=== PATIENT | male | born 1965 | race Caucasian/White ===

== ENCOUNTER 2018-05-25 14:16 | Outpatient (CLI) | payer BC, SELFPAY ==
[2018-05-25 15:12] LABS: Hemoglobin A1C 6.7 % (4.5-6.2)
[2018-05-25 16:24] LABS: Anion Gap 12.9 mmol/L (3-11); BUN 21 mg/dL (7-18); CO2 24.1 mmol/L (21.0-32.0); CREATININE 1.12 mg/dL (0.70-1.30); Chloride 101 mmol/L (98-107); Glucose 111 mg/dL (70-100); Potassium 4.3 mmol/L (3.5-5.1); Sodium 138 mmol/L (136-145)
[2018-05-25 16:36] LABS: Cholesterol 189 mg/dL (50-200); HDL Cholesterol 38 mg/dL (40-60); LDL CHOLESTEROL 117 mg/dL (<100); Triglyceride 252 mg/dL (30-150)
== END 2018-05-25 14:36 ==
PROVIDERS: PCP Emergency Medicine; Visit Provider Emergency Medicine
DX: E11.9 Type 2 diabetes mellitus without complications (principal); I10 Essential (primary) hypertension
CPT/HCPCS: 36415; 80048; 80061; 83721; 83036

== ENCOUNTER 2018-11-26 07:13 | Day surgery (SDC) | payer BC, SELFPAY ==
--- NOTE | 2018-11-26 06:50 | W.COLOREPORT ---
Date of service: 11/26/18 Time of Service: 08: Colonoscopy Report Date of procedure: 11/26/18 Pre-op diagnosis general: Colon Cancer Screening Post-op diagnosis procedure note: other (Diverticulosis and polyps) Procedure: Colonoscopy with polypectomy Surgeon: Humaira Fowler Anesthesia proc note operative: other (General/ ASA 2/Lara Brown CRNA) Estimated blood loss (mL): 3 Pathology: other (descending, sigmoid polyps and rectal polyp) Complications: None Disposition: same day Indications: Mr. James is a pleasant 53 year old male seen in the office for his 1st colonoscopy. Risks, benefits and complications have been reviewed. Complications include but are not limited to bleeding, pain, perforation, missed small lesion/polyp, sore throat, aspiration and adverse reaction to the medications. Questions were entertained and answered to their satisfaction and they wished to proceed. No guarantees were given or implied. Prep: Miralax/Dulcolax Procedure Start Time: 08:22 Procedure End Time: 08:53 Retraction Time: 22 minutes Findings: Moderate diverticulosis of the left colon 5 polyps Procedure Description: After informed consent was obtained the patient was taken to the procedure room and placed in a left decubitous position. Monitors were applied and a time out was done. The patients name, date of , procedure, allergies to medications and metal in their body was reviewed. The patient was then sedated. Once sedated and comfortable a rectal exam was done. External exam was normal. Internal exam revealed a normal sphincter tone and no palpable masses. The prostate felt smooth. The scope was then introduced and retro-flexed. No internal hemorrhoids and masses were identified. The scope was then advanced to the cecum without difficulty. The TI and appendiceal orifice were identified. The prep was adequate. The scope was then slowly retracted over 22 minutes back into the rectum. Polyps were removed with cold forceps in the descending colon x1, sigmoid colon x2 and rectum x2. There was moderate diverticulosis noted of the descending and sigmoid colon. The scope was removed and the patient was woken up and taken back to Same day surgery in stable condition. The patient tolerated the procedure well and there were no immediate complications. Follow up: The patient should follow up in 3-5 years unless they develop changes in bowel habits or other new gastrointestinal complaints.
--- NOTE | 2018-11-26 06:52 | W.PM.DSUDISC ---
Discharge Plan Disposition Patient Disposition: HOME Condition: Good Discharge Details Reason For Visit: Colon Cancer Screening Attending Provider: Humaira Fowler Primary Care Provider: Hamilton Mayen Home Meds and New Rx's Prescriptions: Continued (DME) lancets [OneTouch UltraSoft Lancets] misc See Dose Instructions .ROUTE .MEDSUPPLY Qty: 50 RF: 0 (DME) blood-glucose meter [OneTouch Ultra2 Meter] kit See Dose Instructions .ROUTE .MEDSUPPLY Qty: 1 RF: 0 amlodipine 5 mg tablet 5 mg PO DAILY Qty: 90 RF: 4 (DME) lancets [OneTouch Delica Lancets] 1 EACH misc 1 ea Miscellaneous DAILY Qty: 100 RF: 4 (DME) Blood Glucose Test 1 EACH strip 1 ea Miscellaneous DAILY Qty: 100 RF: 4 (DME) OneTouch Ultra Blue Test Strip strip See Dose Instructions .ROUTE .MEDSUPPLY Qty: 100 RF: 3 metformin 1,000 mg tablet 1,000 mg PO BID Qty: 180 RF: 3 pravastatin 40 mg tablet 40 mg PO DAILY Qty: 90 RF: 3 lisinopril 10 mg tablet 20 mg PO DAILY Qty: 90 RF: 3 Discontinued polyethylene glycol 3350 17 gram/dose powder 238 g PO ONCE Qty: 238 RF: 0 bisacodyl [Dulcolax (bisacodyl)] 5 mg tablet,delayed release (DR/EC) 5 mg PO ONCE Qty: 4 RF: 0 Discharge Instructions Instructions: Diverticulosis (DC), Colorectal Polyps (DC) Additional Instructions: Findings: diverticulosis 5 polyps Follow up: 3-5 years Please call if you develop: fevers >101.5 Nausea or Vomiting Abdominal pain that is not transient DAY SURGERY UNIT POST ENDOSCOPY INSTRUCTIONS 1. Because there will be medication in your system for the next 24 hours, you may feel a little sleepy. Your coordination will be affected. Therefore: a. Do not drive or operate dangerous equipment for 24 hours. b. Do not drink alcohol beverages for 24 hours (not even beer). c. Plan to go home and rest for the day. 2. Generally there are no restrictions on your activity after a day or so has gone by, but you may feel a bit fatigued for a few days. 3 After you arrive home you may have a light meal and return to a normal diet as you can tolerate it without feeling sick to your stomach. 4. After surgery, you may feel pain or discomfort. This should be only transient, but if it persists please contact your doctor. 5. If there are any questions regarding the findings of your procedure, please feel free to contact your doctor. 6. If you are unable to contact your doctor with a problem, contact the hospital at [phone]. 7. Continue all your regular medications unless directed otherwise. I understand the above instructions and have no questions. Signature of Patient or Responsible Adult Escort Date/Time Name of Responsible Adult Escort Signature of Nurse Date/Time Activity:: Activity as Tolerated Diet:: High Fiber Diet Discharge Orders Discharge Orders: Discharge Order (Routine); Ordered 11/26/18 Ordered By: Humaira Fowler DS: Diagnosis Discharge Diagnosis (1) S/P colonoscopy: Status: Acute (2) Diverticulosis: Status: Acute (3) Colorectal polyps: Status: Acute
[2018-11-26 07:20] VITALS: BP 137/97; PULSE 91; RESP 18; TEMP 36; O2SAT 97
[2018-11-26] MEDS: Lactated Ringers 1,000 ML 80 ML IV (07:52)
--- NOTE | 2018-11-26 08:47 | BOWEL_PTH ---
PATIENT: Pranav James LOC: [facility] U#:[id number] AGE/SX: 53/M ROOM: RE11/26/[address]: Humaira Fowler MD : 1965 BED: DIS: 11/26/2018 SPEC #: [id number] RECD: 11/26/18 12:45 STATUS: ASHWINI REQ #: [id number] KHADIJAH: 11/26/18 08:[address]: Humaira Fowler DEPT: Surgical Specimen RECD BY: Kaley Lyman ENTERED: 11/26/18 12:46 SP TYPE: Bowel OTHR DR: Hamilton Mayen DO Tissues: 1 - BIOPSY BOWEL 2 - BIOPSY BOWEL 3 - BIOPSY BOWEL Procedures: GROSS AND MICRO LEVEL 4 Comments: [id number]
[2018-11-26 09:30] VITALS: BP 111/76; PULSE 68; RESP 18; TEMP 36.4; O2SAT 97
--- NOTE | 2018-11-30 10:15 | ROE_ITS ---
NOVEMBER 30, 2018 THIS IS ATEST TO SEE IF THE CHANNEL MARKETING SPECIALIST WILL CROSS [facility] EMERGENCY ROOM ON THE REPORT - AFTER GINA MADE A CHANGE.
== END 2018-11-26 09:50 | disposition home or self-care (01) ==
LOC: SUR 07:13
PROVIDERS: PCP Emergency Medicine; Visit Provider Surgery
PROC: 0DJD8ZZ Inspection of Lower Intestinal Tract, Via Natural or Artificial Opening Endoscopic (ICD-10-PCS; CPT 45378; principal; 2018-11-26 08:30)
DX: Z12.11 Encounter for screening for malignant neoplasm of colon (principal); K63.5 Polyp of colon; K57.30 Diverticulosis of large intestine without perforation or abscess without bleeding; E11.9 Type 2 diabetes mellitus without complications; Z79.84 Long term (current) use of oral hypoglycemic drugs; I10 Essential (primary) hypertension
CPT/HCPCS: 45380; 88305

== ENCOUNTER 2019-03-12 07:46 | Outpatient (CLI) | payer BC, SELFPAY ==
[2019-03-12 12:48] LABS: Anion Gap 10.2 mmol/L (3-11); BUN 17 mg/dL (7-18); CO2 27.8 mmol/L (21.0-32.0); CREATININE 1.05 mg/dL (0.70-1.30); Calcium 8.7 mg/dL (8.5-10.1); Chloride 101 mmol/L (98-107); Glucose 225 mg/dL (74-106); Potassium 4.4 mmol/L (3.5-5.1); Sodium 139 mmol/L (136-145)
[2019-03-12 13:11] LABS: Hemoglobin A1C 7.4 % (3.8-5.6)
== END 2019-03-12 08:06 ==
PROVIDERS: PCP Emergency Medicine; Visit Provider Emergency Medicine
DX: I10 Essential (primary) hypertension (principal); E11.9 Type 2 diabetes mellitus without complications; Z12.5 Encounter for screening for malignant neoplasm of prostate
CPT/HCPCS: 36415; 80048; 84153; 83036

== ENCOUNTER 2019-10-07 02:36 | Outpatient (CLI) | payer BC, SELFPAY ==
[2019-10-07 08:46] LABS: Hemoglobin A1C 7.2 % (3.8-5.6)
[2019-10-07 08:50] LABS: BUN 20 mg/dL (7-18); CREATININE 1.02 mg/dL (0.70-1.30); Calcium 8.7 mg/dL (8.5-10.1); Chloride 104 mmol/L (98-107); Glucose 155 mg/dL (74-106); Potassium 4.5 mmol/L (3.5-5.1); Sodium 139 mmol/L (136-145)
== END 2019-10-07 02:56 ==
PROVIDERS: PCP Emergency Medicine; Visit Provider Emergency Medicine
DX: E11.9 Type 2 diabetes mellitus without complications (principal); I10 Essential (primary) hypertension
CPT/HCPCS: 36415; 80048; 83036

== ENCOUNTER 2019-12-31 12:31 | Outpatient (CLI) | payer BC, SELFPAY ==
--- NOTE | 2019-12-31 15:00 | DI.RAD_ITS ---
EXAM: XR CHEST 2V PA LATERAL CLINICAL HISTORY: cough, R05 TECHNIQUE: 2D digital imaging was performed. COMPARISON: No exams were available for comparison FINDINGS: MEDIASTINUM: Normal. HEART: Normal. PULMONARY VASCULATURE: Normal. LUNGS: Clear. PLEURAL SPACE: No pleural effusion or pneumothorax. BONE:Within normal limits for the patient's age. OTHER FINDINGS:Normal. IMPRESSION: No acute pulmonary findings. DATA REPOSITORY: RADIATION DOSE DELIVERED:
== END 2019-12-31 12:51 ==
PROVIDERS: PCP Emergency Medicine; Visit Provider Emergency Medicine
DX: R05 Cough (principal)
CPT/HCPCS: 71046

== ENCOUNTER 2021-03-26 01:43 | Outpatient (CLI) | payer OTHER, SELFPAY ==
--- NOTE | 2021-03-26 12:49 | DI.RAD_ITS ---
Exam(s) XR LUMBAR SPINE COMPLETE EXAM: XR LUMBAR SPINE COMPLETE CLINICAL HISTORY: low back pain,m54.50. TECHNIQUE: 2D digital imaging was performed of the lumbar spine. Six images were obtained. AP, lat eral, right oblique, left oblique and L5-S1 spot views were obtained. COMPARISON: No exams were available for comparison FINDINGS: BONES: No fracture or destructive lesion. Endplate osteophytes are present at all levels of the lumba r spine. Degenerative changes of the facets are seen in the lower lumbar spine. There is a rudiment gemini rib on the 1st lumbar vertebra. DISKS: There is disc space narrowing at L3-L4 and L5-S1. ALIGNMENT: Lumbar spinal alignment is within normal limits. No spondylolysis or spondylolisthesis. SOFT TISSUE: There are surgical clips in the right upper quadrant of the abdomen. IMPRESSION: Ytiu-ja-ztymhavf degenerative changes in the lumbar spine. DATA REPOSITORY: RADIATION DOSE DELIVERED:
== END 2021-03-26 02:03 ==
PROVIDERS: PCP Family Medicine; Visit Provider Emergency Medicine
DX: M54.50 Low back pain, unspecified (principal); M51.36 Other intervertebral disc degeneration, lumbar region
CPT/HCPCS: 72110

== ENCOUNTER 2021-04-26 03:10 | Outpatient (CLI) | payer OTHER, SELFPAY ==
[2021-04-26 08:43] LABS: Anion Gap 9.6 mmol/L (3-11); BUN 20 mg/dL (7-18); CO2 26.4 mmol/L (21.0-32.0); Calcium 9.1 mg/dL (8.5-10.1); Calculated LDL 94 mg/dL (<100); Chloride 98 mmol/L (98-107); Cholesterol 186 mg/dL (<200); Glucose 314 mg/dL (74-106); HDL Cholesterol 41 mg/dL (40-60); Potassium 4.1 mmol/L (3.5-5.1); Sodium 134 mmol/L (136-145); Triglyceride 259 mg/dL (<150)
[2021-04-26 08:50] LABS: Hemoglobin A1C 10.1 % (<5.7)
[2021-04-26 09:49] LABS: COMMENT (LAB VIEW ONLY) 79.67 mg/dL; Microalb ug/mg Crea 48.1 ug/mg Cr
== END 2021-04-26 03:11 | disposition home or self-care (01) ==
LOC: LBO 03:10
PROVIDERS: PCP Family Medicine; Visit Provider Family Medicine
DX: E11.65 Type 2 diabetes mellitus with hyperglycemia (principal); I10 Essential (primary) hypertension
CPT/HCPCS: 36415; 80048; 80061; 82043; 82570; 83036

== ENCOUNTER 2022-04-18 02:52 | Outpatient (CLI) | payer OTHER, SELFPAY ==
[2022-04-18 14:09] LABS: Potassium 4.2 mmol/L (3.5-5.1)
== END 2022-04-18 02:53 | disposition home or self-care (01) ==
PROVIDERS: PCP Nurse Practitioner Family; Visit Provider Nurse Practitioner Family
DX: I10 Essential (primary) hypertension (principal)
CPT/HCPCS: 36415; 82565; 84132

== ENCOUNTER 2022-04-29 14:45 | Outpatient (REF) | payer OTHER, SELFPAY ==
--- NOTE | 2022-04-29 14:10 | SKI_PTH ---
PATIENT: Pranav James LOC: [facility] U#:[id number] AGE/SX: 57/M ROOM: RE04/29/[address]: CHANTELLE Vasquez : 1965 BED: DIS: 04/29/2022 SPEC #: [id number] RECD: 04/29/22 18:29 STATUS: ASHWINI REIsac #: [id number] KHADIJAH: 04/29/22 14:[address]: García Concepcion DEPT: Surgical Specimen RECD BY: Kaley Lyman ENTERED: 04/29/22 18:30 SP TYPE: EBENEZER WERNER DR: Robin Almeida, JOB TRAINER Tissues: 1 - SKIN BIOPSY(SHAVE/PUNCH) 2 - SKIN BIOPSY(SHAVE/PUNCH) 3 - SKIN BIOPSY(SHAVE/PUNCH) 4 - SKIN BIOPSY(SHAVE/PUNCH) Procedures: SKIN LEVEL 4 Comments: [id number]
== END 2022-04-29 14:46 | disposition home or self-care (01) ==
LOC: LBN 14:45
PROVIDERS: PCP Nurse Practitioner Family; Visit Provider Physician Assistant
DX: D22.5 Melanocytic nevi of trunk (principal); C44.311 Basal cell carcinoma of skin of nose
CPT/HCPCS: 88305

== ENCOUNTER 2022-06-09 12:07 | Emergency (ER) | payer OTHER, SELFPAY ==
[2022-06-09 12:08] VITALS: BP 166/103; PULSE 84; RESP 16; TEMP 37.1; O2SAT 97
--- NOTE | 2022-06-09 14:00 | NUR.NOTE ---
Nursing Note: Patient stated to Samantha Johnston that he did not want to wait and that he was going to go to [place] [id number].
== END 2022-06-09 14:00 | disposition left against medical advice (07) ==
LOC: ER 12:36
PROVIDERS: PCP Nurse Practitioner Family
DX: Z53.21 Procedure and treatment not carried out due to patient leaving prior to being seen by health care provider (principal)

== ENCOUNTER 2022-12-27 12:09 | Observation (INO) | payer OTHER, SELFPAY ==
[2022-12-27] VITALS (16 sets, daily range): BP systolic 151–201; BP diastolic 87–136; PULSE 66–85; RESP 14–20; TEMP 36.3–37.1; O2SAT 95–99
--- NOTE | 2022-12-27 12:30 | DI.RAD_ITS ---
Exam(s) XR PORTABLE CHEST AP EXAM: XR PORTABLE CHEST AP CLINICAL HISTORY: central chest heaviness TECHNIQUE: 2D digital imaging was performed of the chest. One image was obtained. An AP view was ob tained. COMPARISON: No exams were available for comparison FINDINGS: MEDIASTINUM: Normal. HEART: Normal. PULMONARY VASCULATURE: Normal. LUNGS: Clear. PLEURAL SPACE: No pleural effusion or pneumothorax. BONE:Within normal limits for the patient's age. OTHER FINDINGS:Normal. IMPRESSION: No acute pulmonary findings. DATA REPOSITORY: RADIATION DOSE DELIVERED:
--- NOTE | 2022-12-27 12:30 | RT.EKG_ITS ---
APPROVED REPORT Exam: Resting ECG Reason for Exam: chest pain Patient Location: E HR:84 bpm ECG Measurements Heart Rate 84 AXIS NM 194 P 25 QRSd 107 QRS 8 QT 390 T 4 QTc 461 Conclusion Sinus rhythm...normal P axis, V-rate 60- 99 Probable left ventricular hypertrophy...(RaVL+SV3)xQRSd >280 Physician: no stemi
[2022-12-27] MEDS: Aspirin 81 MG CHEW 324 MG CH (13:17)
[2022-12-27] MEDS: Normal Saline 500 ML IV (13:18)
[2022-12-27 13:30] LABS: Abs Immature Grans 0.02 10^3/uL (0.0-0.06); Absolute Basophil Count 0.04 10^3/uL (0.0-0.2); Absolute Eosinophil Count 0.08 10^3/uL (0.0-0.7); Absolute Lymphocyte Count 2.41 10^3/uL (1.2-3.4); Absolute Monocyte Count 0.78 10^3/uL (0.1-0.8); Absolute Neutrophil Count 6.21 10^3/uL (1.2-6.7); Basophils % 0.4; Eosinophils % 0.8; HCT 44.8 % (40.0-50.0); HGB 15.7 g/dL (13.5-17.5); Immature Grans % 0.2; Lymphocytes % 25.3; MCH 31.1 pg (27.0-33.0); MCV 89 fL (80-95); MPV 9.6 fL (8.0-11.0); Monocytes % 8.2; Neutrophils % 65.1; Platelet Count 273 10^3/uL (130-400); RBC 5.05 10^6/uL (4.36-5.78); RDW 12.4 % (11.8-14.1); RDW-SD 40.9 fL; WBC 9.54 10^3/uL (4.4-10.8)
[2022-12-27 13:45] LABS: ALT 26 U/L (16-63); AST 15 U/L (15-37); Albumin 4.4 g/dL (3.4-5.0); Alkaline Phosphatase 53 U/L (46-116); Anion Gap 8.8 mmol/L (3-11); BUN 17 mg/dL (7-18); Bilirubin, Total 2.4 mg/dL (0.2-1.0); CO2 28.2 mmol/L (21.0-32.0); CREATININE 1.1 mg/dL (0.70-1.30); Calcium 9.7 mg/dL (8.5-10.1); Chloride 101 mmol/L (98-107); Estimated GFR 77.33 (mL/min/1.73m2); Glucose 126 mg/dL (74-106); Lipase 36 U/L (16-77); Potassium 4.1 mmol/L (3.5-5.1); Sodium 138 mmol/L (136-145); Troponin I < 50 ng/L (<or=60)
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
[2022-12-27 13:56] LABS: Bilirubin Negative (Negative); Blood Negative (Negative); Clarity Clear (Clear); Glucose Negative (Negative); Ketones Negative (Negative); Leukocyte Esterase Negative (Negative); Nitrite Negative (Negative); Urobilinogen 0.2 mg/dL (Up to 0.2); pH 5.5 (5-8)
[2022-12-27 13:59] LABS: PTT Activated 25.9 sec (23.6-32.8); Prothrombin Time 10.4 sec (9.1-11.1)
[2022-12-27] MEDS: nitroGLYcerin 0.4 MG TAB SL (14:08)
--- NOTE | 2022-12-27 15:00 | RT.EKG_ITS ---
APPROVED REPORT Exam: Resting ECG Reason for Exam: chest pain Patient Location: E HR:71 bpm ECG Measurements Heart Rate 71 AXIS ND 165 P -4 QRSd 110 QRS -14 QT 401 T -8 QTc 436 Conclusion Sinus rhythm...normal P axis, V-rate 60- 99 Inferior infarct, age indeterminate...Q>35mS, T neg, II III aVF Physician: no stemi, stable inverted t wave in III
[2022-12-27 15:32] LABS: Troponin I < 50 ng/L (<or=60)
[2022-12-27 16:25] LABS: Source Nasal/Nares
[2022-12-27 16:59] LABS: COVID-19 PCR Negative (Negative)
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
[2022-12-27] MEDS: metFORMIN C.R. 500 MG TABCR 1000 MG PO (18:17)
[2022-12-27] MEDS: Pantoprazole 40 MG VIAL IVP (18:47)
[2022-12-27 19:57] LABS: Troponin I < 50 ng/L (<or=60)
[2022-12-27] MEDS: Magic Mouthwash 119 ML BTL 10 ML PO (21:00)
[2022-12-27] MEDS: Mylanta Suspension 30 ML CUP PO (23:50)
[2022-12-27] MEDS: Zolpidem 5 MG TAB 10 MG PO (23:50)
[2022-12-28 03:00] VITALS: BP 142/84; PULSE 74; RESP 15; TEMP 36.4; O2SAT 97
[2022-12-28 07:05] VITALS: BP 174/103; PULSE 75; RESP 22; TEMP 36.6; O2SAT 95
[2022-12-28] MEDS: Lisinopril 20 MG TAB 40 MG PO (08:05)
[2022-12-28] MEDS: Aspirin 81 MG CHEW PO (08:05)
[2022-12-28] MEDS: metFORMIN C.R. 500 MG TABCR 1000 MG PO (08:05)
[2022-12-28] MEDS: amLODIPine 5 MG TAB PO (08:05)
[2022-12-28 08:24] VITALS: BP 159/88
[2022-12-28 09:39] VITALS: BP 169/99
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
[2022-12-28] MEDS: cloNIDine 0.1 MG TAB PO (11:09)
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
--- NOTE | 2022-12-28 16:11 | PDOC.CMPRO ---
Date of service: 12/28/22 Time of Service: 16:11 Care Management Progress Note Progress Note Text Progress Note Text: Pranav was admitted on 12/27/22 with chest pain. Serial troponins were negative and his EKG was unremarkable. he was discharged home before CM was able to meet with him. He will have outpatient follow up to include an MPI stress test.
== END 2022-12-28 14:07 | disposition home or self-care (01) ==
LOC: ER 16:10 → MS 17:10
PROVIDERS: Admitting Provider Family Medicine; Emergency Provider Student in an Organized Health Care Education/Training Program; PCP Nurse Practitioner Family; Visit Provider Family Medicine
DX: R07.9 Chest pain, unspecified (principal); I10 Essential (primary) hypertension; E78.5 Hyperlipidemia, unspecified; E66.9 Obesity, unspecified; R06.09 Other forms of dyspnea; Z82.49 Family history of ischemic heart disease and other diseases of the circulatory system; Z79.84 Long term (current) use of oral hypoglycemic drugs; E11.65 Type 2 diabetes mellitus with hyperglycemia; Z68.36 Body mass index [BMI] 36.0-36.9, adult
CPT/HCPCS: 00123; 80053; 83690; 87635; 93005; 93308; 71045; 81003; 84484; 85025; 85610; 85730; 93010; 93306; 99223; 99239; G0378

== ENCOUNTER → 2023-01-16 02:03 | Outpatient (CLI) | payer OTHER, SELFPAY ==
--- NOTE | 2023-01-16 06:25 | ETT_ITS ---
APPROVED REPORT Exam: Exercise Treadmill Patient Location: Out-Patient Room/Bed: Stress Nurse: Darien Bosch RN Ordering Provider:MADAY GRISSOM, Contact Number: [phone] BMI: 34.72 Baseline Rhythm: Sinus Rhythm Indications: Chest pain, SOB Medical History Medical History: HTN, DM, HLD, obesity Cardiac Medications: Amlodipine, Lisinopril., Allergies: No known drug allergies Cardiac Risk Factors: HTN, Hyperlipidemia, DM, Obesity Pretest Chest Pain Characteristics: No chest pain Exercise History: Sedentary Physical Disabilities: None Lung Sounds: Clear to auscultation Heart Sounds: Regular Stress Test Details Test: Exercise stress testing was performed using a Maximino protocol. Rest Stress HR Resting HR Supine: 79 bpm Max Heart Rate (APMHR): 161 bpm Resting HR Standin bpm Target HR (85% APMHR): 137 bpm Max HR Achieved: 152 bpm % of APMHR: 94 Recovery HR: 97 bpm HR response to stress: Normal HR response to stress BP Resting BP Supine: 158/98 mmHg Resting BP Standin/92 mmHg Max BP: 176/78 mmHg Recovery BP: 144/92 mmHg BP response to stress: Normal blood pressure response to stress. ECG Resting ECG: Sinus Rhythm Ectopy: none Stress ECG: Sinus Tachycardia ST Change: No significant ST segment changes noted Arrhythmia: None Comment: One PVC noted. Recovery ECG: Sinus Rhythm Recovery ST Change: No significant ST segment changes noted Recovery Arrhythmia: None Clinical Reason for Termination: Target HR Achieved, Fatigue Stress Symptoms: None Exercise duration: 9 min22 sec Highest Stage Reached: 4 Exercise capacity: 10.73 METs Angina Score: None Bhagat Treadmill Score: 8.3 Rate Pressure Product: [id number] Stress ECG Conclusion 1. Resting electrocardiogram showed right axis, late transition 2. Patient exercised on the Maximino protocol completed a workload of 10.73 METS 3. Normal heart rate and blood pressure response to exercise. The patient achieved 94% of predicted heart rate for age 4. There was no electrocardiographic evidence of myocardial ischemia 5. There were no significant dysrhythmias Bhagat Treadmill Score is 8.3 which is Low risk. Stress Test Summary STAGE Time (mins) Speed (mph) Grade (%) HR BP SpO2 SYMPTOMS METS Supine 79 158/98 96 Standing 79 130/92 1 3 1.7 10 86 130/92 98 4.5 2 6 2.5 12 102 7 1 min recovery 145 176/78 98 3 min recovery 96 162/84 6 min recovery 93 144/92 97
== END ==
PROVIDERS: PCP Nurse Practitioner Family; Visit Provider Nurse Practitioner Family
DX: R07.9 Chest pain, unspecified (principal)
CPT/HCPCS: 93017

== ENCOUNTER 2023-04-10 04:23 | Outpatient (CLI) | payer OTHER, SELFPAY ==
[2023-04-10 14:38] LABS: Abs Immature Grans 0.02 10^3/uL (0.0-0.06); Absolute Basophil Count 0.05 10^3/uL (0.0-0.2); Absolute Eosinophil Count 0.09 10^3/uL (0.0-0.7); Absolute Lymphocyte Count 2.22 10^3/uL (1.2-3.4); Absolute Monocyte Count 1.03 10^3/uL (0.1-0.8); Basophils % 0.5; Eosinophils % 0.9; HCT 41.6 % (40.0-50.0); HGB 14.6 g/dL (13.5-17.5); Immature Grans % 0.2; Lymphocytes % 23.3; MCHC 35.1 % (32.0-36.0); MCV 88 fL (80-95); MPV 9.9 fL (8.0-11.0); Monocytes % 10.8; Neutrophils % 64.3; Platelet Count 270 10^3/uL (130-400); RBC 4.71 10^6/uL (4.36-5.78); RDW 12.3 % (11.8-14.1); RDW-SD 40.2 fL; WBC 9.51 10^3/uL (4.4-10.8)
[2023-04-10 15:24] LABS: CREATININE 1.1 mg/dL (0.70-1.30); Calculated LDL 88 mg/dL (<100); Cholesterol 159 mg/dL (<200); Estimated GFR 76.85 (mL/min/1.73m2); Ferritin 229 ng/mL (26-388); HDL Cholesterol 45 mg/dL (40-60); Potassium 3.9 mmol/L (3.5-5.1); TSH (W/Ref FT4) 1.61 uIU/mL (0.36-3.74); Triglyceride 132 mg/dL (<150)
[2023-04-10 16:01] LABS: Iron 73 ug/dL (65-175); Total Iron Binding Capacity 286 ug/dL (250-450)
[2023-04-11 09:57] LABS: Transferrin 227 mg/dL (201-352)
== END 2023-04-10 04:24 | disposition home or self-care (01) ==
PROVIDERS: PCP Nurse Practitioner Family; Visit Provider Nurse Practitioner Family
DX: I10 Essential (primary) hypertension (principal); E78.5 Hyperlipidemia, unspecified
CPT/HCPCS: 36415; 80061; 82565; 82728; 83540; 83550; 84132; 84443; 84466; 85025

== ENCOUNTER 2023-09-04 06:53 | Day surgery (SDC) | payer OTHER, SELFPAY ==
--- NOTE | 2023-09-03 11:31 | PDOC.DSDIS_ITS ---
Date of service: 09/04/23 Time of Service: 08:30 Discharge Plan Disposition Patient Disposition: Home Condition: Good Discharge Details Reason For Visit: screening colonoscopy Attending Provider: Ezra Varela Primary Care Provider: Robin Almeida Home Meds and New Rx's Prescriptions: Continued (DME) lancets [OneTouch UltraSoft Lancets] misc See Dose Instructions .ROUTE .MEDSUPPLY Qty: 50 0RF Dose Instruction: As directed Rx Instructions: As directed (DME) blood-glucose meter [OneTouch Ultra2 Meter] kit See Dose Instructions .ROUTE .MEDSUPPLY Qty: 1 0RF Dose Instruction: As directed Rx Instructions: As directed fluorouracil [Efudex] 5 % cream 1 applic topical BID semaglutide 7 mg tablet 7 mg PO DAILY Qty: 90 3RF lisinopril 40 mg tablet 40 mg PO DAILY Qty: 90 3RF (DME) lancets [OneTouch Delica Lancets] 1 EACH misc 1 ea Miscellaneous DAILY Qty: 100 Rx Instructions: DX:250.0 (DME) Blood Glucose Test 1 EACH strip 1 ea Miscellaneous DAILY Qty: 100 Rx Instructions: DX:250.0 ONE TOUCH MINI TEST STRIPS (DME) OneTouch Ultra Blue Test Strip strip See Dose Instructions .ROUTE .MEDSUPPLY Qty: 100 3RF Dose Instruction: As directed Rx Instructions: As directed (DME) Blood Glucose Test Strip See Rx Instructions .ROUTE .MEDSUPPLY Qty: 100 5RF Rx Instructions: daily. E11.9 free style lite test strips metformin 500 mg tablet extended release 24 hr 1,000 mg PO BID Qty: 360 3RF pravastatin 40 mg tablet 40 mg PO DAILY Qty: 90 3RF amlodipine 5 mg tablet 10 mg PO HS Qty: 90 3RF zolpidem [Ambien] 10 mg tablet 10 mg PO QHS PRN (Reason: sleep) Qty: 30 2RF chlorthalidone 25 mg tablet 25 mg PO DAILY Qty: 90 3RF omeprazole 20 mg capsule,delayed release(DR/EC) 20 mg PO DAILY Qty: 90 3RF aspirin [Children's Aspirin] 81 mg Tablet,Chewable 81 mg PO DAILY Qty: 0 0RF famotidine 20 mg Tablet 20 mg PO DAILY Qty: 0 0RF Discontinued polyethylene glycol 3350 17 gram/dose powder 17 g PO ONCE Qty: 238 0RF Rx Instructions: Take per colonoscopy instructions provided by ordering providers office bisacodyl [Dulcolax (bisacodyl)] 5 mg tablet,delayed release (DR/EC) 5 mg PO ONCE Qty: 4 0RF Rx Instructions: Take per colonoscopy instructions provided by ordering providers office Discharge Instructions Instructions: Diverticulosis, High-fiber diet Additional Instructions: Pranav, we were able to complete your colonoscopy today without any difficulty. Your prep was excellent and I could see everything fine. You do have diverticulosis. These are small weak spots in the muscular wall of the colon that cause the inside lining to approach outward slightly. This can get infected or inflamed. When that happens, patients usually have quite a bit of pain usually on the left side of their abdomen or down across the lower portion. During episodes of inflammation, we caught diverticulitis. This is often times treated with antibiotics. Generally, the best approach for managing diverticu losis involves having a lots of fiber in your diet to promote soft and regular bowel movements. He should stay well-hydrated and avoid symptoms of constipation. I have attached a little bit of information here about diverticulosis. With a negative screening colonoscopy, you are good for 10 years. If you need anything or have any questions in the meantime, please do not hesitate to ask. 1. If tolerated, consume a soft, low fiber diet for 1-2 days. 2[address] Do not drive, drink alcohol, operate machinery, make critical decisions, or do activities that require coordination or balance for 24 hours. 3. Because air was put into your colon during the procedure, expelling air from your rectum (passing gas or farting) is normal. 4. You may not have a bowel movement for 1-3 days because of the colonoscopy prep. This is normal. 5. Go directly to the emergency room if you notice any of the following: Develop chills (warm to touch), or if you have a thermometer and your temperature is above 101 Difficulty breathing or difficultly swallowing Persistent vomiting Severe abdominal pain, other than gas cramps Severe chest pain Black, tarry stools Any bleeding ? exceeding one tablespoon 6. Call your physician if the site where your intravenous was started becomes red, swollen, painful, and warm to touch. 7. Your physician has reviewed your pre-procedure medications. Please continue to take those medications as previously ordered. You will be given specific information/education regarding any changes to your medications before leaving. Activity:: Activity as Tolerated Diet:: As Tolerated Discharge Orders Discharge Orders: Discharge Order (Routine); Ordered 09/03/23 Ordered By: Ezra Varela DS: Diagnosis Discharge Diagnosis (1) Encounter for screening colonoscopy: Status: Acute Asessment and Plan: Diverticulosis; otherwise negative screening colonoscopy
--- NOTE | 2023-09-03 11:33 | W.COLOREPORT ---
Date of service: 09/04/23 Time of Service: 08:33 Colonoscopy Report Date of procedure: 09/04/23 Pre-op diagnosis general: screening colonoscopy Post-op diagnosis procedure note: other (Diverticulosis) Procedure: colonoscopy Surgeon: Ezra Varela Anesthesia Type: General:No Airway Estimated blood loss (mL): 0 Pathology: none sent Complications: None Disposition: same day Indications: Pranav is a 58 year old man who needs a screening colonoscopy Prep: Miralax/Dulcolax Procedure Start Time: 08:06 Procedure End Time: 08:25 Retraction Time: 9 Findings: Left-sided diverticulosis Procedure Description: After the induction of anesthesia, and with the patient in left lateral decubitus position, I began by performing an external anorectal exam.? Perineum and skin were normal, as was the anal verge.? There was no evidence of external hemorrhoids.? Next, I performed a digital rectal exam.? I did not appreciate any abnormal findings.? Next, I advanced a colonoscope into the rectal vault.? I performed retroflexion.? This was normal.? Using insufflation, I then advanced the colonoscope beyond the rectal folds and into the sigmoid colon before advancing towards the cecum.? There was sigmoid diverticulosis extending up into the descending colon to about 70 cm beyond the anus..? The scope was noted to be in the cecum by identification of the ileocecal valve and appendiceal orifice.? I then began withdrawing the colonoscope using repeated irrigation as necessary for full evaluation of the colonic mucosa. ?Once the scope was withdrawn to the level of the rectum, great care was taken to examine portions of the rectal folds. I did not see any signs of tumors or polyps.? Finally, the scope was withdrawn and the patient was brought to the same-day surgery recovery unit as the anesthetic wore off. ?The findings and instructions were shared with the patient prior to discharge. [place] Bowel Prep [place] Bowel Prep Right Colon: 2 Left Colon: 3 Transverse Colon: 3 Total Score: 8
--- NOTE | 2023-09-03 18:39 | ANES.PREOP_ITS ---
General Info Date of Service Date Performed: 09/04/23 Height: 6 ft Weight: 108.6 kg Body Mass Index (BMI): 32.4 Surgical Procedure: Operation Date: 09/04/23 08:20 Proposed Procedure Side Surgeon steffi Varela MD Meds Allergies and Home Medications Allergies Allergy/AdvReac Type Severity Reaction Status Date / Time No Known Allergies Allergy Verified 09/04/23 07:27 Home Medication Medication Instructions Recorded lancets 33 gauge (OneTouch Delica #100 ea 04/27/12 Lancets) blood sugar diagnostic (Blood #100 ea 09/25/15 Glucose Test strips) blood-glucose meter (OneTouch #1 ea 01/19/18 Ultra2 Meter kit) lancets (OneTouch UltraSoft #50 ea 01/19/18 Lancets) blood sugar diagnostic (OneTouch #100 ea 01/23/18 Ultra Blue Test Strip) blood sugar diagnostic (Blood #100 ea 01/12/21 Glucose Test strips) fluorouracil 5 % topical cream 1 applic topical BID 06/09/22 (Efudex) lisinopril 40 mg tablet 40 mg PO DAILY #90 tab-caps 12/02/22 aspirin 81 mg chewable tablet 81 mg PO DAILY #0 tabs 12/28/22 (Children's Aspirin) famotidine 20 mg tablet 20 mg PO DAILY #0 tabs 12/28/22 metformin 500 mg tablet,extended 1,000 mg (2 x 500 mg) PO BID #360 02/22/23 release 24 hr tabs pravastatin 40 mg tablet 40 mg PO DAILY #90 tabs 02/22/23 amlodipine 5 mg tablet 10 mg (2 x 5 mg) PO HS #90 tabs 03/29/23 semaglutide 7 mg tablet 7 mg PO DAILY #90 tabs 04/03/23 zolpidem 10 mg tablet (Ambien) 10 mg PO QHS PRN sleep #30 tabs 04/10/23 chlorthalidone 25 mg tablet 25 mg PO DAILY #90 tabs 04/12/23 omeprazole 20 mg capsule,delayed 20 mg PO DAILY #90 caps 07/28/23 release Current Visit Medications: Current Medications Generic Name Dose Route Start Last Admin Trade Name Freq PRN Reason Stop Dose Admin Hyoscyamine Sulfate 0.125 mg 09/03/23 11:33 Hyoscyamine 0.125 Mg Sl/Oral/Chew SL 10/03/23 11:32 DIRECTED PRN Ringer's Solution 1,000 mls @ 80 mls/hr 09/04/23 06:00 IV 09/04/23 23:59 INFUSION RENZO IV Miscellaneous Supplies 1 each 09/04/23 06:00 Iv Access IV 09/04/23 23:59 DIRECTED RENZO Ondansetron HCl 4 mg 09/03/23 11:33 Ondansetron 4 Mg/2 Ml Vial IVP 10/03/23 11:32 Q4H PRN PRN Nausea / Vomiting Sodium Chloride 0 ml 09/04/23 06:00 Normal Saline Flush 10 Ml Syr IV 09/04/23 23:59 PRN PRN Sodium Chloride 0 ml 09/04/23 06:00 Normal Saline 10 Ml Vial IJ 09/04/23 23:59 DIRECTED PRN Sterile Water 0 ml 09/04/23 06:00 Water,Injection,Sterile 10 Ml Vial IJ 09/04/23 23:59 DIRECTED PRN PFSH Active Problems Active Problems: Problem Status Onset Code Encounter for screening colonoscopy Z12.11 Suprapubic abdominal burning sensation R20.8 Fatigue R53.83 TRAN (dyspnea on exertion) R06.09 Insomnia G47.00 Skin lesion L98.9 Basal cell carcinoma C44.91 Hyperlipidemia E78.5 Colorectal polyps ~11/26/18 K63.5 Hypertension I10 Type II diabetes mellitus, uncontrolled E11.65 Medical History Medical History Type 2 diabetes mellitus History of hypertension Surgical History Surgical History History of esophagogastroduodenoscopy (EGD) History of ankle surgery History of cholecystectomy Tobacco Smoking/Tobacco Use Status: Never Passive smoking exposure: No Second hand exposure: Yes Alcohol Alcohol Intake: current Alcohol intake frequency: a few times a month Alcohol type: hard liquor Substance Use Substance use: Never Substance use type: does not use Vital Signs and Lab Results Vital Signs Most Recent Vital Signs in EMR: Temp Pulse Resp BP Pulse Ox 36.4 C L 79 18 106/78 97 09/04/23 07:05 09/04/23 07:05 09/04/23 07:05 09/04/23 07:05 09/04/23 07:05 Lab Results Blood Type / Crossmatch: 2 No Data to Display Complete Blood Count: 2 No Data to Display Complete Metabolic Panel: 2 No Data to Display Liver Function Panel: 2 No Data to Display Coagulation Panel: 2 No Data to Display Cardiac Panel: 2 No Data to Display Arterial Blood Gas: 2 No Data to Display Venous Blood Gas: 2 No Data to Display Pancreas Panel: 2 No Data to Display Thyroid Panel: 2 No Data to Display Infectious Disease: 2 No Data to Display Blood Cultures: 2 No Data to Display Toxicology Panel: 2 No Data to Display Imaging and Studies Imaging and Studies Study information below may be from another EMR and interpreted by another provider. Please see original notes in EMR for more complete details. EKG Summary: 12/19: sinus. Stress Test Summary: 01/19: 10.7 METS, no ECG evidence of ischemia. Echocardiogram Summary: 01/19: LVEF 57%, no valve issues. Anesthesia Assessment and Plan Anesthesia History Personal History: No History of Anesthesia Complications Family History: No Family History of Anesthesia Complications Exercise Tolerance Exercise Tolerance: Metabolic Equivalents>4 Cardiac & Pulmonary Exam Cardiac Exam: Normal S1/S2 Heart Sounds Pulmonary Exam: Clear Bilateral Breath Sounds Implantable Cardiac Device Does patient have a Pacemaker or an ICD?: No Airway Exam Known Difficult Airway: No Mallampati Class: 3 Mouth Opening: Normal (> 3cm) Thyromental Distance: Greater than 3 cm Neck Range of Motion: Full ROM Neck Circumference: Normal Teeth Condition: Normal Dentition and Loose or Chipped Tooth Numberin 1. Reports diffuse chipped/broken teeth upper and lower posterior molars. Did discuss risk since previous damage of more damage if intubation is necessary. ASA Classification ASA Score: ASA 2 Emergency Case?: No NPO Status NPO Status: NPO Clears >2 hours, Solids >8 hours Anesthesia Plan Resuscitation Status: Full Code Anesthesia Technique: General Anesthesia Airway Planned: Natural Airway Monitors Used: Standard Monitors Preoperative Comments:: 58 yo male for colo. Sig PMHx: TRAN, GERD, HTN, DM2. never smoker. Occ EtOH.
[2023-09-04 07:05] VITALS: BP 106/78; PULSE 79; RESP 18; TEMP 36.4; O2SAT 97
[2023-09-04] MEDS: Lactated Ringers 1,000 ML 80 ML IV (07:49)
[2023-09-04 08:06] VITALS: BMI 32.4
[2023-09-04 08:29] VITALS: BP 100/69; PULSE 77; RESP 16; TEMP 36.4; O2SAT 97
--- NOTE | 2023-09-04 08:35 | W.ANESPOSTOP ---
Postoperative Evaluation Date, Time and Location Date Performed: 09/04/23 Time Performed: 08:35 Patient Location: Day Surgery Unit Vital Signs Most Recent Imported Vital Signs: Most Recent Vital Signs Temp Pulse Resp BP Pulse Ox 36.4 C L 77 16 100/69 97 09/04/23 08:29 09/04/23 08:29 09/04/23 08:29 09/04/23 08:29 09/04/23 08:29 Pain Score Most Recent Pain Score: Most Recent Pain Score Pain Level 0 09/04/23 08:29 Assessment Mental Status: Awake (Alert & Oriented to Patient Baseline) Airway and Respiratory Function: Patent airway with normal (patient baseline) respiratory exam Cardiovascular Function: Hemodynamically Stable Hydration Status: Adequately Hydrated Nausea & Vomiting: No Nausea or Vomiting Pain: Pt. Denies Any Pain Peripheral Nerve Block: Patient did not receive a nerve block
[2023-09-04 08:46] VITALS: BP 110/78; PULSE 68; RESP 16; TEMP 36.4; O2SAT 96
== END 2023-09-04 09:23 | disposition home or self-care (01) ==
LOC: SUR 06:53
PROVIDERS: PCP Nurse Practitioner Family; Visit Provider Surgery
PROC: 0DJD8ZZ Inspection of Lower Intestinal Tract, Via Natural or Artificial Opening Endoscopic (ICD-10-PCS; CPT 45378; principal; 2023-09-04 08:15)
DX: Z12.11 Encounter for screening for malignant neoplasm of colon (principal); K57.30 Diverticulosis of large intestine without perforation or abscess without bleeding; K21.9 Gastro-esophageal reflux disease without esophagitis; I10 Essential (primary) hypertension; R06.09 Other forms of dyspnea; Z86.010 Personal history of colon polyps
CPT/HCPCS: 45378; J2704

== ENCOUNTER 2024-04-22 03:06 | Outpatient (CLI) | payer OTHER, SELFPAY ==
[2024-04-22 16:48] LABS: CREATININE 2.2 mg/dL (0.70-1.30); Calculated LDL 76 mg/dL (<100); Cholesterol 152 mg/dL (<200); Estimated GFR 33.24 (mL/min/1.73m2); HDL Cholesterol 44 mg/dL (40-60); Potassium 4.3 mmol/L (3.5-5.1); Triglyceride 164 mg/dL (<150)
[2024-04-22 23:26] LABS: PSA, Screening 1.6 ng/mL (<=4.5)
== END 2024-04-22 03:07 | disposition home or self-care (01) ==
LOC: LBO 03:06
PROVIDERS: PCP Nurse Practitioner Family; Visit Provider Nurse Practitioner Family
DX: Z13.220 Encounter for screening for lipoid disorders (principal); I10 Essential (primary) hypertension; Z12.5 Encounter for screening for malignant neoplasm of prostate
CPT/HCPCS: 36415; 80061; 84153; 82565; 84132

== ENCOUNTER 2024-05-06 04:18 | Outpatient (CLI) | payer OTHER, SELFPAY ==
[2024-05-06 18:23] LABS: Anion Gap 13.4 mmol/L (3-11); BUN 43 mg/dL (7-18); CO2 22.6 mmol/L (21.0-32.0); CREATININE 2.3 mg/dL (0.70-1.30); Calcium 9.5 mg/dL (8.5-10.1); Chloride 102 mmol/L (98-107); Estimated GFR 31.52 (mL/min/1.73m2); Glucose 78 mg/dL (74-106); Potassium 4.9 mmol/L (3.5-5.1); Sodium 138 mmol/L (136-145)
== END 2024-05-06 04:19 | disposition home or self-care (01) ==
LOC: LBO 04:18
PROVIDERS: PCP Nurse Practitioner Family; Visit Provider Nurse Practitioner Family
DX: R79.89 Other specified abnormal findings of blood chemistry (principal)
CPT/HCPCS: 36415; 80048

== ENCOUNTER 2024-05-24 00:57 | Outpatient (CLI) | payer OTHER, SELFPAY ==
[2024-05-24 15:51] LABS: Anion Gap 13.4 mmol/L (3-11); BUN 47 mg/dL (7-18); CO2 24.6 mmol/L (21.0-32.0); CREATININE 2.3 mg/dL (0.70-1.30); Calcium 9.8 mg/dL (8.5-10.1); Chloride 100 mmol/L (98-107); Estimated GFR 31.52 (mL/min/1.73m2); Glucose 106 mg/dL (74-106); Potassium 4.3 mmol/L (3.5-5.1); Sodium 138 mmol/L (136-145)
== END 2024-05-24 00:58 | disposition home or self-care (01) ==
LOC: LBO 00:57
PROVIDERS: PCP Nurse Practitioner Family; Visit Provider Nurse Practitioner Family
DX: R79.89 Other specified abnormal findings of blood chemistry (principal)
CPT/HCPCS: 36415; 80048